=== PATIENT | female | born 1985 | race African-American/Black ===

== ENCOUNTER 2019-09-21 10:57 | Emergency (ER) | payer MEDICAID, OTHER ==
[~2019-09-21] VITALS: Ht 160 cm; Wt 83.0 kg
[2019-09-21 10:58] VITALS: BP 142/77
== END 2019-09-21 11:53 | disposition left against medical advice (07) ==
LOC: ER 10:57
DX: R07.89 Other chest pain (principal); Z53.21 Procedure and treatment not carried out due to patient leaving prior to being seen by health care provider
CPT/HCPCS: 93005

== ENCOUNTER 2019-09-21 15:05 | Emergency (ER) | payer MEDICAID ==
[~2019-09-21] VITALS: Ht 165.1 cm; Wt 75.0 kg
[2019-09-21 17:25] VITALS: BP 119/71
== END 2019-09-21 17:32 | disposition home or self-care (01) ==
LOC: ER 15:05
DX: R07.89 Other chest pain (principal)
CPT/HCPCS: 99281

== ENCOUNTER 2019-11-04 14:08 | Emergency (ER) | payer MEDICAID, OTHER ==
[~2019-11-04] VITALS: Ht 157.5 cm; Wt 82.0 kg
[2019-11-04 15:34] VITALS: BP 129/83
== END 2019-11-04 15:36 | disposition home or self-care (01) ==
LOC: ER 14:08
DX: R07.89 Other chest pain (principal); R03.0 Elevated blood-pressure reading, without diagnosis of hypertension
CPT/HCPCS: 93005; 99283